=== PATIENT | male | born 1940 | race Caucasian/White ===

== ENCOUNTER 2017-07-08 17:33 | Emergency (ER) | payer MEDICARE ==
[~2017-07-08] VITALS: Ht 188 cm; Wt 81.7 kg
[~2017-07-08 17:33] MED LIST: ALPR.25 PO; ASPI81EC PO; Aspirin325 MG PO; CITA20 PO; DESV50 PO; LACT10SY PO; LISI5 PO; LOVA20 PO; METF500 PO; NITR.4SL SL; POLY17UD PO; VALS80 PO
[2017-07-08 18:12] LABS: BASOPHILS ABSOLUTE AUTO 0.04 K/mm3 (0.00-0.23); BASOPHILS PERCENT AUTO 0 % (0-2); EOSINOPHILS ABSOLUTE AUTO 0.01 K/mm3 (0.00-0.68); EOSINOPHILS PERCENT AUTO 0 % (0-6); Hemoglobin 13.6 g/dL (13.5-17.5); IMMATURE GRAN ABSOLUTE AUTO 0.07 K/mm3 (0.00-0.10); IMMATURE GRAN PERCENT AUTO 1 % (0-1); LYMPHOCYTES ABSOLUTE AUTO 0.77 K/mm3 (0.84-5.20); LYMPHOCYTES PERCENT AUTO 5 % (21-46); MONOCYTES ABSOLUTE AUTO 0.86 K/mm3 (0.16-1.47); MONOCYTES PERCENT AUTO 6 % (4-13); Mean Corpuscular HGB 30.3 pg (26.0-34.0); Mean Corpuscular HGB Conc 33.2 g/dL (31.5-36.5); Mean Corpuscular Volume 91 fL (80-100); Mean Platelet Volume 9.7 fL (9.1-12.4); NEUTROPHILS ABSOLUTE AUTO 12.94 K/mm3 (1.96-9.15); NEUTROPHILS PERCENT AUTO 88 % (41-73); Platelet Count 312 K/mm3 (150-400); RDW Standard Deviation 47.3 fL (35.1-46.3); Red Blood Cell Count 4.49 M/mm3 (4.30-5.90); White Blood Cell Count 14.69 K/mm3 (4.00-11.30)
[2017-07-08] MEDS ORDERED: VENL150ER PO (18:14)
[2017-07-08] MEDS ORDERED: VENL75ER PO (18:14)
[2017-07-08 18:31] LABS: Alanine Aminotransfer (ALT/SGP 13 U/L (12-78); Albumin, Blood 3.5 g/dL (3.4-5.0); Alk Phos 103 U/L (50-136); Anion Gap 15 mmol/L (6-16); Aspartate Aminotrans (AST/SGOT 18 U/L (12-37); Bilirubin, Total 0.8 mg/dL (0.1-1.0); Blood Urea Nitrogen 26 mg/dL (8-24); Bun/Creatinine Ratio 23.9 (12.0-20.0); CO2, Blood 19 mmol/L (21-32); Calcium, Blood 9.1 mg/dL (8.5-10.1); Chloride, Blood 104 mmol/L (98-108); Creatinine, Blood 1.09 mg/dL (0.60-1.20); Globulin, Blood 3.4 g/dL (2.2-4.0); Glomerular Filtration Rate >60 (60-); Glucose, Blood 155 mg/dL (70-99); Potassium, Blood 3.6 mmol/L (3.5-5.5); Sodium, Blood 138 mmol/L (136-145); Total Protein, Blood 6.9 g/dL (6.4-8.2)
[2017-07-08 19:17] LABS: Source, Urine Clean Catch
[2017-07-08 19:20] LABS: Appearance, Urine Clear (Clear); Bilirubin, Urine Neg (Neg); Blood, Urine 5+ (Neg); Glucose Qualitative, Urine Neg (Neg); Ketones, Urine 4+ (Neg); Leukocyte Esterase, Urine 2+ (Neg); Nitrite, Urine Neg (Neg); Protein, Urine 2+ (Neg); Specific Gravity, Urine 1.015 (1.003-1.022); Urobilinogen, Urine NORM (Normal)
[2017-07-08 19:25] LABS: Influenza A Positive (NEGATIVE); Influenza B Negative (NEGATIVE)
[2017-07-08 19:28] LABS: Color, Urine Yellow (P-Yellow)
[2017-07-08 19:30] LABS: Hyaline Casts 0-2 /lpf (0-2)
[2017-07-08 19:31] LABS: Red Blood Cells, Urine 25-50 /hpf (0-2); Squamous Epithelial Cells Rare /hpf (Few)
[2017-07-08 19:32] LABS: Bacteria Few /hpf; White Blood Cells, Urine 25-50 /hpf (0-5)
[2017-07-08] MEDS ORDERED: Norco 5-325 Ta1 EACH PO (21:31)
[2017-07-08] MEDS ORDERED: CEPH500 PO (21:31)
[2017-07-08] MEDS ORDERED: Zofran Odt4 MG SL (21:31)
== END 2017-07-08 21:57 | disposition home or self-care (01) ==
LOC: ER 17:33
PROVIDERS: Emergency Medicine; Physician Assistant
DX: K52.9 Noninfective gastroenteritis and colitis, unspecified (principal); N39.0 Urinary tract infection, site not specified; Z91.09 Other allergy status, other than to drugs and biological substances; Z79.82 Long term (current) use of aspirin; Z79.84 Long term (current) use of oral hypoglycemic drugs; E11.40 Type 2 diabetes mellitus with diabetic neuropathy, unspecified; Z90.49 Acquired absence of other specified parts of digestive tract; Z90.89 Acquired absence of other organs; F17.200 Nicotine dependence, unspecified, uncomplicated; G47.30 Sleep apnea, unspecified; Z98.42 Cataract extraction status, left eye; Z79.891 Long term (current) use of opiate analgesic; Z79.2 Long term (current) use of antibiotics
CPT/HCPCS: 36415; 76770; 80053; 81001; 83690; 85025; 87086; 87804; 96365; 96375; 96376; 99284; J0696; J2405; J2550; J7030

== ENCOUNTER 2022-12-13 12:18 | Inpatient (IN) | payer MEDICARE ==
[~2022-12-13 12:18] MED LIST changes: -ABILIFY MYCITE10 M2 PO; -EFFEXOR XR150 MG PO; -FURO20 PO; -GABA300 PO; -POTA10T PO; -Zestril30 MG PO
[2022-12-13 12:53] LABS: BASOPHILS ABSOLUTE AUTO 0.11 K/mm3 (0.00-0.23); BASOPHILS PERCENT AUTO 1 % (0-2); EOSINOPHILS ABSOLUTE AUTO 0.26 K/mm3 (0.00-0.68); EOSINOPHILS PERCENT AUTO 3 % (0-6); Hematocrit 35.7 % (37.0-53.0); Hemoglobin 11.5 g/dL (13.5-17.5); IMMATURE GRAN ABSOLUTE AUTO 0.03 K/mm3 (0.00-0.10); IMMATURE GRAN PERCENT AUTO 0 % (0-1); LYMPHOCYTES PERCENT AUTO 17 % (21-46); MONOCYTES ABSOLUTE AUTO 0.76 K/mm3 (0.16-1.47); MONOCYTES PERCENT AUTO 10 % (4-13); Mean Corpuscular HGB 30.3 pg (26.0-34.0); Mean Corpuscular HGB Conc 32.2 g/dL (31.5-36.5); Mean Corpuscular Volume 94 fL (80-100); Mean Platelet Volume 10.5 fL (9.1-12.4); NEUTROPHILS ABSOLUTE AUTO 5.43 K/mm3 (1.96-9.15); NEUTROPHILS PERCENT AUTO 69 % (41-73); Platelet Count 363 K/mm3 (150-400); RDW Coefficient Variation 14.6 % (11.7-14.2); RDW Standard Deviation 51.1 fL (35.1-46.3); White Blood Cell Count 7.89 K/mm3 (4.00-11.30)
[2022-12-13 13:45] LABS: Albumin, Blood 3.6 g/dL (3.4-5.0); Albumin/Globulin Ratio 1.1 (0.8-1.8); Bilirubin, Total 0.5 mg/dL (0.1-1.0); Bun/Creatinine Ratio 24.5 (12.0-20.0); Calcium, Blood 9.2 mg/dL (8.5-10.1); Creatinine, Blood 1.43 mg/dL (0.60-1.20); Globulin, Blood 3.4 g/dL (2.2-4.0); Potassium, Blood 4.5 mmol/L (3.5-5.5)
[2022-12-13] MEDS ORDERED: ELIQUIS5 M2 PO (15:28)
[2022-12-13] MEDS ORDERED: ABILIFY MYCITE10 M2 PO (15:29)
[2022-12-13] MEDS ORDERED: CLOP75 PO (15:30)
[2022-12-13] MEDS ORDERED: GABA300 PO (15:31)
[2022-12-13] MEDS ORDERED: Zestril30 MG PO (15:32)
[2022-12-13] MEDS ORDERED: EFFEXOR XR150 MG PO ×2 (15:33→15:34)
[2022-12-13 16:47] VITALS: BP 116/94
--- NOTE | 2022-12-13 18:15 | NUR ---
ADMISSION AND SUMMARY PATIENT ADMITTED TO MEDICAL FLOOR WITH CHF EXACERBATION. PATIENT ALERT AND INTERACTIVE. SON PRIMARY CAREGIVER AND PRESENT AT END OF SHIFT. PATIENT BLADDER SCANNED AFTER VOIDING WITH 200 CC PRESENT. PATIENT STATES WITH MOVEMENT HE GETS SOB AND TAKES AWHILE TO RECOVER. PATIENT HAS APPOINTMENT WITH CARDIOLOGY TO HAVE CONSULT TO HAVE AORTIC VALVE REPLACED. PATIENT HAS AORTIC STENOSIS. PATIENT DENIES ANY CHEST PAIN OR SHORTNESS OF BREATH AT THIS TIME. PATIENT EDUCATED ON FIRE SAFETY AND NOT ALLOWED TO USE FLAMMABLE ITEMS IN THE HOSPITAL. PATIENT VERBALIZED UNDERSTANDING AND MONITORED WITH HOURLY ROUNDING.
[2022-12-13 19:09] VITALS: BP 97/66
--- NOTE | 2022-12-13 22:15 | NUR ---
DISCUSSED CRITICAL LAB VALUE OF TROPONIN 1517 WITH MENTAL HEALTH SOCIAL WORKER ANIA DURHAM. NO NEED TO NOTIFY HOSPITALIST RESULT IS TRENDING IN ANTICIPATED DIRECTION. ORDER PLACED ON DAY SHIFT FOR HEPARIN SUBCUTANEOUS 5000 UNITS THEN DISCONTINUED VERY SHORTLY AFTER WILL. PASS ONTO DAY SHIFT TO FIND OUT WHY HEPARIN WAS ORDERED AND DISCONTINUED SO SUDDENLY.
[2022-12-14 02:03] LABS: BASOPHILS PERCENT AUTO 1 % (0-2); EOSINOPHILS ABSOLUTE AUTO 0.45 K/mm3 (0.00-0.68); EOSINOPHILS PERCENT AUTO 6 % (0-6); Hematocrit 33.1 % (37.0-53.0); Hemoglobin 11.1 g/dL (13.5-17.5); IMMATURE GRAN ABSOLUTE AUTO 0.05 K/mm3 (0.00-0.10); IMMATURE GRAN PERCENT AUTO 1 % (0-1); LYMPHOCYTES ABSOLUTE AUTO 1.88 K/mm3 (0.84-5.20); LYMPHOCYTES PERCENT AUTO 24 % (21-46); MONOCYTES ABSOLUTE AUTO 0.96 K/mm3 (0.16-1.47); MONOCYTES PERCENT AUTO 12 % (4-13); Mean Corpuscular HGB 30.7 pg (26.0-34.0); Mean Corpuscular HGB Conc 33.5 g/dL (31.5-36.5); Mean Corpuscular Volume 91 fL (80-100); Mean Platelet Volume 10.3 fL (9.1-12.4); NEUTROPHILS ABSOLUTE AUTO 4.31 K/mm3 (1.96-9.15); NEUTROPHILS PERCENT AUTO 56 % (41-73); Platelet Count 320 K/mm3 (150-400); RDW Coefficient Variation 14.4 % (11.7-14.2); RDW Standard Deviation 48.5 fL (35.1-46.3); Red Blood Cell Count 3.62 M/mm3 (4.30-5.90); White Blood Cell Count 7.75 K/mm3 (4.00-11.30)
[2022-12-14 02:17] LABS: Albumin, Blood 3.3 g/dL (3.4-5.0); Bilirubin, Total 0.4 mg/dL (0.1-1.0); Bun/Creatinine Ratio 25.5 (12.0-20.0); Calcium, Blood 8.5 mg/dL (8.5-10.1); Creatinine, Blood 1.49 mg/dL (0.60-1.20); Globulin, Blood 3.2 g/dL (2.2-4.0); Magnesium, Blood 2.1 mg/dL (1.6-2.4); Phosphorus, Blood 3.4 mg/dL (2.5-4.9); Potassium, Blood 3.8 mmol/L (3.5-5.5); Total Protein, Blood 6.5 g/dL (6.4-8.2)
--- NOTE | 2022-12-14 04:00 | NUR ---
SHIFT SUMMARY. SHIFT HAS BEEN UNREMARKABLE. 2 CRITICAL TROPONINS THIS SHIFT. 1st ONE WAS TRENDING DOWN, HOSPITALIST NOT NOTIFIED AFTER DISCUSSION WITH ANIA DURHAM RN. 2nd ONE WAS SLIGHTLY HIGHER, CALLED HOSPITALIST DR. HUFFMAN TO NOTIFY AND RECEIVED NO ORDERS. PT COMPLAINED OF LEG CRAMPS EARLY THIS MORNING. CALLED DR. HUFFMAN AND ORDERED FLEXERIL TO TREAT, NO COMPLAINTS SINCE. CALLED SESAR EARLY IN SHIFT TO DISCUSS POSSIBLE TELE PLACEMENT. NO NEED AT THIS TIME PER SESAR. NO COMPLAINTS OF PAIN THIS SHIFT. WILL CONTINUE TO MONITOR. CALLS APPROPRIATELY. BED LOCKED IN LOWEST POSITION. CALL LIGHT LEFT WITHIN REACH.
[2022-12-14 04:56] VITALS: BP 96/73
[2022-12-14 04:57] VITALS: BP 96/73
[2022-12-14 07:50] VITALS: BP 96/68
--- NOTE | 2022-12-14 14:14 | NUR ---
Spoke with Dr Mcintosh and discussed case. Hospice discussion started with Pt and family in agreement. Pt and family may benefit from F/U visit by Palliative Care to answer any questions they may have. Pt resting in bed and is A&OX4. Pt appears weak and frail. Pt's son at bedside. Engaged in therapeutic discussion regarding hospice services. Educated on hospice philosophy with V/U made by Pt and son. Offered threapeutic listening, validated concerns, and answered questions. Pt requires assistance with bathing, dressing, toileting, ambulation. Pt becomes significantly SOB with exertion and at rest. Discussed hospice agencies to choose from with [facility] being Pt and family preference. Pt and son express appreciation and report no concerns at this time. Son is requesting hospital bed, bedside commode, wheel chair, and oxygen for comfort. PPS 30% ADLs 08/25 Spoke with BEATA Del [place] and relayed hospice preference and equipment. Spoke with Dr Hodges and discussed case. Palliative Care will remain available
[2022-12-14 14:36] VITALS: BP 95/66
--- NOTE | 2022-12-14 18:05 | NUR ---
SHIFT SUMMARY PATIENT WORKED WITH PT TODAY. PATIENT TO GO HOME ON HOSPICE. PATIENT NOT A SURGICAL CANDIDATE WITH POOR EF FOR VALVE REPLACEMENT. PATIENT DENIES ANY CHEST DISCOMFORT OR SOB TODAY. EDUCATION PROVIDED TO PATIENT AND SON RELATED DIET, EXCERCISE, EXCERTION AND HOSPICE. SONE BROUGHT IN NEW PUPPY FOR A VISIT WHICH IMPROVED PATIENT'S OVERALL MOOD.
[2022-12-14 19:16] VITALS: BP 81/66
[2022-12-15 04:15] VITALS: BP 94/72
--- NOTE | 2022-12-15 05:27 | NUR ---
SHIFT SUMMARY. SHIFT HAS BEEN MOSTLY UNREMARKABLE. AOX4, PLEASANT, COOPERATIVE WITH CARE. SLEPT THROUGH MUCH OF SHIFT AFTER 2100 MEDICATION ADMINISTRATION AND SHIFT ASSESSMENT. CALLS APPROPRIATELY. NO PAIN REPORTED THIS SHIFT. BED LOCKED IN LOWEST POSITION. CALL LIGHT LEFT WITHIN REACH.
[2022-12-15 05:54] LABS: Anion Gap 9 mmol/L (6-16); Blood Urea Nitrogen 38 mg/dL (8-24); Bun/Creatinine Ratio 25.2 (12.0-20.0); CO2, Blood 23 mmol/L (21-32); Calcium, Blood 8.3 mg/dL (8.5-10.1); Chloride, Blood 108 mmol/L (98-108); Creatinine, Blood 1.51 mg/dL (0.60-1.20); Glomerular Filtration Rate 46 (60-); Glucose, Blood 106 mg/dL (70-99); Phosphorus, Blood 3.5 mg/dL (2.5-4.9); Potassium, Blood 3.8 mmol/L (3.5-5.5); Sodium, Blood 140 mmol/L (136-145)
[2022-12-15 07:05] VITALS: BP 83/46
[2022-12-15 07:08] VITALS: BP 91/65
[2022-12-15] MEDS ORDERED: FURO20 PO (10:35)
[2022-12-15] MEDS ORDERED: POTA10T PO (10:36)
--- NOTE | 2022-12-15 13:13 | NUR ---
DISCHARGE AND SHIFT SUMMARY PATIENT DISCHARGED TO HOME WITH HOSPICE. PATIENT ALERT AND INTERACTIVE DURING SHIFT. PATIENT EASILY SHORT OF BREATH WITH ANY EXCERTION. PATIENT DENIED ANY PAIN. EDUCATION PROVIDED TO FAMILY RELATED TO LOW SALT DIET, LIMITED EXCERTION. PATIENT IS NOT A CANDIDATE FOR AORTIC VALVE REPLACEMENT BECAUSE OF LOW EF. DISCHARGE INSTRUCTIONS REVIEWED WITH PATIENT AND SON. IV DC'D. IV INTACT. BRUISING NOTED AROUND INSERTION SITE. PATIENT ON BLOOD THINNERS. PATIENT TRANSPORTED OUT VIA WHEELCHAIR. SON TOOK ALL PERSONAL BELONGINGS. ROOM CHECK DONE BEFORE PATIENT LEFT THE ROOM.
== END 2022-12-15 11:34 | disposition hospice, home (50) | DRG 291 ==
LOC: ER 12:18 → MEDS 15:18 → ENPENDDIS 12-15 10:05 → MEDS 12-15 11:34
PROVIDERS: Emergency Medicine; ADMIT Family Medicine
DX: I11.0 Hypertensive heart disease with heart failure (principal); I50.31 Acute diastolic (congestive) heart failure; N17.9 Acute kidney failure, unspecified; Z66 Do not resuscitate; Z51.5 Encounter for palliative care; I48.91 Unspecified atrial fibrillation; E11.42 Type 2 diabetes mellitus with diabetic polyneuropathy; I08.1 Rheumatic disorders of both mitral and tricuspid valves; I27.20 Pulmonary hypertension, unspecified; F17.200 Nicotine dependence, unspecified, uncomplicated; R77.8 Other specified abnormalities of plasma proteins; Z86.73 Personal history of transient ischemic attack (TIA), and cerebral infarction without residual deficits; Z88.8 Allergy status to other drugs, medicaments and biological substances; Z79.82 Long term (current) use of aspirin; Z79.811 Long term (current) use of aromatase inhibitors; Z79.899 Other long term (current) drug therapy
CPT/HCPCS: 36415; 80053; 80069; 83735; 83880; 84100; 84484; 85025; 93005; 93010; 93308; 93321; 96374; 97110; 97116; 97162; 99285-25; A9270; J1940

== ENCOUNTER → 2022-12-13 | Outpatient (CLI) | payer MEDICARE ==
[~2022-12-13] MED LIST changes: +ABILIFY MYCITE10 M2 PO; +ABILIFY MYCITE20 M2 PO; +Aspir 8181 MG PO; -Aspirin325 MG PO; +CEPH500 PO; +CLOP75 PO; +EFFEXOR XR150 MG PO; +ELIQUIS5 M2 PO; +FURO20 PO; +GABA300 PO; +IBU800 M1 PO; +NEURONTIN300 MG PO; +Norco 5-325 Ta1 EACH PO; +POTA10T PO; +SILDENAFIL CITR50 MG PO; +VENL150ER PO; +VENL75ER PO; +Zestril30 MG PO; +Zofran Odt4 MG SL
[2022-12-13 11:57] LABS: Albumin, Blood 3.7 g/dL (3.4-5.0); Bilirubin, Total 0.4 mg/dL (0.1-1.0); Bun/Creatinine Ratio 22.8 (12.0-20.0); Calcium, Blood 9.1 mg/dL (8.5-10.1); Creatinine, Blood 1.58 mg/dL (0.60-1.20); Globulin, Blood 3.6 g/dL (2.2-4.0); Potassium, Blood 4.7 mmol/L (3.5-5.5); Total Protein, Blood 7.3 g/dL (6.4-8.2)
[2022-12-13 12:11] LABS: BASOPHILS ABSOLUTE AUTO 0.09 K/mm3 (0.00-0.23); BASOPHILS PERCENT AUTO 1 % (0-2); EOSINOPHILS ABSOLUTE AUTO 0.31 K/mm3 (0.00-0.68); EOSINOPHILS PERCENT AUTO 4 % (0-6); Hematocrit 34.7 % (37.0-53.0); Hemoglobin 11.2 g/dL (13.5-17.5); IMMATURE GRAN ABSOLUTE AUTO 0.02 K/mm3 (0.00-0.10); IMMATURE GRAN PERCENT AUTO 0 % (0-1); LYMPHOCYTES ABSOLUTE AUTO 1.17 K/mm3 (0.84-5.20); LYMPHOCYTES PERCENT AUTO 15 % (21-46); MONOCYTES ABSOLUTE AUTO 0.77 K/mm3 (0.16-1.47); MONOCYTES PERCENT AUTO 10 % (4-13); Mean Corpuscular HGB 30.4 pg (26.0-34.0); Mean Corpuscular HGB Conc 32.3 g/dL (31.5-36.5); Mean Corpuscular Volume 94 fL (80-100); Mean Platelet Volume 10.1 fL (9.1-12.4); NEUTROPHILS ABSOLUTE AUTO 5.47 K/mm3 (1.96-9.15); NEUTROPHILS PERCENT AUTO 70 % (41-73); Platelet Count 336 K/mm3 (150-400); RDW Coefficient Variation 14.7 % (11.7-14.2); RDW Standard Deviation 50.4 fL (35.1-46.3); Red Blood Cell Count 3.69 M/mm3 (4.30-5.90); White Blood Cell Count 7.83 K/mm3 (4.00-11.30)
== END ==
LOC: LAB 11:32 → LAB SHORT 11:32
PROVIDERS: Physician Assistant Medical
DX: R06.09 Other forms of dyspnea (principal)
CPT/HCPCS: 80053; 84484; 85025